=== PATIENT | male | born 1935 | race Caucasian/White ===

== ENCOUNTER → 2016-11-18 | Outpatient (CLI) | payer MEDICARE | LOC: LAB 11:35 | PROVIDERS: ATTEND Family Medicine | DX: R06.02 Shortness of breath (principal); I51.7 Cardiomegaly | CPT/HCPCS: 71020 ==

== ENCOUNTER → 2016-11-18 | Outpatient (REF) | payer MEDICARE ==
[2016-11-18 13:20] LABS: BASOPHILS % (AUTO) 1 % (0-2); EOSINOPHILS # (AUTO) 0.2 10^3uL; EOSINOPHILS % (AUTO) 4 % (0-4); LYMPHOCYTES # (AUTO) 0.7 X10^3; MEAN CORPUSCULAR HEMOGLOBIN 29.8 PG (26.0-34.0); MEAN CORPUSCULAR VOLUME 97 FL (80-100); MEAN PLATELET VOLUME 10.5 FL (6.0-9.5); MONOCYTES # (AUTO) 0.7 X10^3; MONOCYTES % (AUTO) 12 % (3-11); NEUTROPHILS % (AUTO) 71 % (51-67); PLATELET COUNT 194 10^3uL (150-450); WHITE BLOOD COUNT 5.64 10^3uL (4.0-11.0)
[2016-11-18 13:28] LABS: ALBUMIN 4.7 g/dL (3.4-5.0); ANION GAP 22.7 MEQ/L (3-15); CALCULATED IONIZED CALCIUM 3.7 mg/dL (3.8-4.6); TOTAL PROTEIN 8.3 g/dL (6.4-8.5)
[2016-11-18 13:44] LABS: MEAN CORPUSCULAR HGB CONC 30.8 g/dL (31.0-37.0)
== END ==
LOC: LAB 12:10
PROVIDERS: ATTEND Family Medicine
DX: R06.02 Shortness of breath (principal); I25.10 Atherosclerotic heart disease of native coronary artery without angina pectoris; E11.9 Type 2 diabetes mellitus without complications; I10 Essential (primary) hypertension
CPT/HCPCS: 80053; 85025; 86140

== ENCOUNTER 2016-12-15 17:42 | Emergency (ER) | payer OTHER, MEDICARE ==
[~2016-12-15] VITALS: Ht 185.4 cm; Wt 67.0 kg
[2016-12-15 17:50] VITALS: RESP 20
[2016-12-15 20:25] VITALS: BP 109/65
== END 2016-12-15 20:20 | disposition home or self-care (01) ==
LOC: EDUNIT# 17:42 → ED 17:44
DX: S20.211A Contusion of right front wall of thorax, initial encounter (principal); J90 Pleural effusion, not elsewhere classified; V49.40XA Driver injured in collision with unspecified motor vehicles in traffic accident, initial encounter; Y93.89 Activity, other specified; F17.200 Nicotine dependence, unspecified, uncomplicated
CPT/HCPCS: 71101; 72020; 99283; 99284

== ENCOUNTER → 2016-12-15 | Outpatient (CLI) | payer OTHER, MEDICARE ==
[~2016-12-15] MED LIST: ASPI325T4; ATOR40TA2; CHOL100092 PO; CITA20SO PO; CMBV14.7IN INH; CTLP20T PO; DOXY100T41 PO; ERGO400T6 PO; HCT25T; LSNP10T; MECL-105 PO; ONDAN4ODT PO; OXYC5TAB71 PO; OXYGEN; TEMA30CA PO; [UNRECOGNIZED DRUG - REMARK]; sleeping pill
== END ==
LOC: EMS 17:20
PROVIDERS: ATTEND Emergency Medicine
DX: R07.81 Pleurodynia (principal); V53.5XXA Driver of pick-up truck or van injured in collision with car, pick-up truck or van in traffic accident, initial encounter; Y92.414 Local residential or business street as the place of occurrence of the external cause

== ENCOUNTER → 2016-12-16 | Outpatient (CLI) | payer OTHER, MEDICARE | LOC: RAD 10:38 | PROVIDERS: ATTEND Family Medicine | DX: J94.2 Hemothorax (principal); J43.9 Emphysema, unspecified | CPT/HCPCS: 71020 ==

== ENCOUNTER → 2016-12-28 | Outpatient (CLI) | payer MEDICARE ==
[~2016-12-28] MED LIST changes: +MIRT7.5T8 PO; +SEVE800T7 PO
== END ==
LOC: EMS 16:20
DX: J18.9 Pneumonia, unspecified organism (principal); N19 Unspecified kidney failure; Z99.2 Dependence on renal dialysis

== ENCOUNTER → 2016-12-28 | Outpatient (CLI) | payer MEDICARE | LOC: EMS 13:10 | PROVIDERS: ATTEND Family Medicine | DX: R53.1 Weakness (principal); Z99.2 Dependence on renal dialysis ==

== ENCOUNTER → 2016-12-28 | Emergency (ER) | payer MEDICARE ==
[~2016-12-28] VITALS: Ht 185.4 cm; Wt 140.0 kg
[~2016-12-28] MED LIST changes: +NS IV 500 ML 500 ML IV SCH; +cefTRIAXone SODIUM 1,000 MG in SODIUM CHLORIDE 50 ML IV ONE
--- OUTSIDE RECORDS SUMMARY | 2016-12-28 13:24 | XMS REPORT | Continuity of Care Document ---
Author Author [facility] Address Unknown Phone Unavailable Care Team Providers Care Contact Center Assistant Name Role Phone RANDOLPH LUCERO MD PCP [phone] Insurance Providers Payer Name Policy Number Subscriber Name Relationship Medicare A And B [id number] Lolita Tidwell 19 Self / Same As Patient [employer] [facility] Supp [id number] Lolita Tidwell 19 Self / Same As Patient Advance Directives Directive Response Recorded Date/Time Advanced Directives No 12/15/16 5:47pm Chief Complaint and Reason for Visit Chief Complaint Trauma Reason for Visit [id number] Problems Active Problems Medical Problem Onset Date Status Bronchitis 06/28/2012 Resolved Chest pain Unknown Acute ESRD (end stage renal disease) Unknown Acute Fall Unknown Acute Falls Unknown Acute Fracture of neck of left humerus 05/13/2016 Acute Hypoxia Unknown Acute Rib contusion Unknown Acute Weakness generalized Unknown Acute Medications Current Home Medications Medication Dose Units Route Directions Days/Qty Instructions Start Date Temazepam 30 Mg 30 Mg ORAL Bedtime 05/13/16 Citalopram Hydrobromide (Celexa) 20 Mg 20 Mg ORAL Daily 08/17/16 Cholecalciferol (Vitamin D3) 1,000 Unit 1,000 Unit ORAL Bedtime Past Home Medications Medication Directions Ordered Status Aspirin 325 Mg Tablet, 06/28/12 Discontinued Atorvastatin Calcium 40 Mg Tablet, 06/28/12 Discontinued Lisinopril (Zestril) 10 Mg Tablet, 10/08/12 Discontinued Hydrochlorothiazide 25 Mg Tablet, 06/28/12 Discontinued Doxycycline Hyclate 100 Mg Tablet, 1 Tab Oral Twice A Day 06/28/12 Discontinued Albuterol/Ipratropium 14.7 Gm Aero, 14.7 2ML Respiratory (Inhalation) Every 6 Hours 06/28/12 Discontinued Meclizine Hcl (Antivert) 25 Mg Tablet, 1 - 2 Tab Oral Q 6H Prn 06/28/12 Discontinued [Pill For Depression] , Unknown Dose As Directed 04/14/16 Discontinued [Sleeping Pill ] , Unknown Dose Bedtime 04/14/16 Discontinued Ergocalciferol (Vitamin D2) 400 Unit Tablet, 400 Unit Oral As Directed Discontinued Citalopram Hydrobromide 20 Mg/10 Ml Solution, 20 Mg Oral Daily 05/13/16 Discontinued Oxycodone Hcl 5 Mg Tablet, 1-2 Tab Oral Every 6 Hours as needed for Pain Discontinued Ondansetron Hcl 4 Mg Tab.rapdis, 4 Mg Oral Every 4HRS as needed for Nausea Discontinued Social History Social History Problem Response Recorded Date/Time Onset Date Status Exposure to occupational hazards No 08/16/2016 8:32pm Query Response Start Date Stop Date Smoking Status Current every day smoker Hospital Discharge Instructions No hospital discharge instructions. Plan of Care Discharge Date 12/15/16 8:20pm Disposition 01 HOME OR SELF-CARE Condition at Discharge Stable Prescriptions See Medication Section Referrals RANDOLPH LUCERO MD - Additional Instructions/Education ED [facility] if any worse, Follow up with your doctor tomorrow morning as scheduled. Some of your test results may not be complete prior to your leaving the Emergency Department. The Emergency Department is not authorized to give test results over the phone. Please contact the doctor's office listed in this packet of information for your final results. Follow up with your primary care physician or return to the Emergency Department for worsening or worrisome symptoms. * Emergency Department phone number: [phone], x [phone] MEDICAL RECORD If you need copies of your X-rays, call [phone]. If you need copies of your medical record, including lab results, a signed authorization for release of records will be required. A telephone call for release of Health Information is not allowed. BILLING Billing can sometimes be confusing and frustrating. To help avoid confusion in the future, please take a moment to acquaint yourself with the billing parties for services. [employer] Emergency Room Services [facility] Physician Services [facility] X-rays [facility] Patients will receive bills for services from the appropriate provider. If you have any questions about your [facility] bill, our staff will be happy to assist you. Please call [phone], and ask for the billing department. THANK YOU for choosing [facility] as your emergency care provider! Care Plan and Goals ~~Discharge Care Plan~~ Problem: Contusion, pain to affected area, fall. Goal: Decreased contusion and pain to affected area. Instructions: Apply ice to area for 15-20 minutes every 3-4 hours. Elevate extremity above the level of the heart, if applicable. Splint area with pillow or blanket to any chest/abdomen injuries. Use incentive spirometry as directed. Take at least 10 deep breaths per hour. Take medication(s) as directed. Follow up with regular physician or specialist as directed. Exercise as tolerated or directed by physician. Functional Status No functional status results. Allergies, Adverse Reactions, Alerts No known allergies. Immunizations No immunization records. Vital Signs Acute Vital Signs Vital Response Date/Time Temperature (Fahrenheit) 97.9 12/15/2016 8:25pm Pulse 72 bpm 12/15/2016 8:25pm Respirations 20 12/15/2016 8:25pm Height 6 ft 1 in Weight 147 lb Body Mass Index 19.0 kg/m^2 Results Pending Laboratory Results Test Name Collection Date/Time Procedures Procedure Status Date Provider(s) CHEST X-RAY 2VW FRONTAL&LATL Completed 11/18/16 COMPREHEN METABOLIC PANEL Completed 02/28/17 COMPLETE CBC W/AUTO DIFF WBC Completed 11/18/16 C-REACTIVE PROTEIN Completed 11/18/16 Encounters Encounter Location Arrival/Admit Date Discharge/Depart Date Attending Provider Departed Emergency Room [facility] 12/15/16 5:44pm 12/15/16 8:20pm OSIRIS PRETTY MD Registered [facility] 12/15/16 5:20pm DASHAWN VIDAL MD Registered [facility] 11/18/16 12:10pm RANDOLPH LUCERO MD Registered Clinic [facility] 11/18/16 11:35am RANDOLPH LUCERO MD Recent Diagnosis
[2016-12-28 14:51] LABS: MEAN CORPUSCULAR HEMOGLOBIN 27.6 PG (26.0-34.0); MEAN CORPUSCULAR VOLUME 90 FL (80-100); MEAN PLATELET VOLUME 9.5 FL (6.0-9.5); PLATELET COUNT 312 10^3uL (150-450); WHITE BLOOD COUNT 18.21 10^3uL (4.0-11.0)
[2016-12-28 15:00] LABS: MEAN CORPUSCULAR HGB CONC 30.7 g/dL (31.0-37.0)
[2016-12-28 15:03] LABS: ALBUMIN 3.5 g/dL (3.4-5.0); ALKALINE PHOSPHATASE 211 U/L (38-126); ANION GAP 23.6 MEQ/L (3-15); CALCULATED IONIZED CALCIUM 4.4 mg/dL (3.8-4.6)
[2016-12-28 15:08] LABS: BUN/CREATININE RATIO 12 (10-20)
[2016-12-28 15:15] LABS: CREATINE KINASE < 20 U/L (55-170)
[2016-12-28 15:27] LABS: BAND NEUTROPHILS % 28 % (0-6); EOSINOPHILS % 0 % (0-4); LYMPHOCYTES # 0.4 #; MONOCYTES # 1.3 #; MONOCYTES % 7 % (3-11); RBC MORPH SEE REFERENCE (NORMAL); SEGMENTED NEUTROPHILS % 63 % (51-67); TOTAL CELLS COUNTED 100
[2016-12-28 15:28] LABS: ANISOCYTOSIS SLIGHT; HYPOCHROMASIA SLIGHT
--- NOTE | 2016-12-28 16:00 | NUR ---
Assisted to toilet, had bm.
[2016-12-28 16:28] VITALS: BP 109/57
--- NOTE | 2016-12-28 16:46 | Diagnostic Imaging Report ---
EXAM: Portable chest. COMPARISON with a prior study from December 16, 2016. INDICATION: Weakness and cough. FINDINGS: There is dense new consolidation demonstrated within the lower lobes, right greater than left. Associated effusion cannot be excluded. Findings are superimposed on background interstitial changes. There is chronic enlargement of the cardiac silhouette. There is no pneumothorax. A chronic post traumatic deformity is demonstrated of the left shoulder. IMPRESSION: 1. New dense alveolar opacities, right greater than left. Findings suggest bibasilar pneumonia. Associated effusions cannot be excluded. 2. There is enlargement of the cardiac silhouette. 3. The central pulmonary vascularity appears appropriate. 4. There is a remote chronic posttraumatic deformity of the left proximal humerus. Dictated by: Dictated on workstation # [id number]
== END | disposition short-term general hospital (02) ==
LOC: ED 13:22
DX: J18.1 Lobar pneumonia, unspecified organism (principal); F17.210 Nicotine dependence, cigarettes, uncomplicated; I51.7 Cardiomegaly; I45.81 Long QT syndrome; E11.22 Type 2 diabetes mellitus with diabetic chronic kidney disease; I13.11 Hypertensive heart and chronic kidney disease without heart failure, with stage 5 chronic kidney disease, or end stage renal disease; N18.6 End stage renal disease; Z99.2 Dependence on renal dialysis; Z99.81 Dependence on supplemental oxygen
CPT/HCPCS: 36415; 71010; 80053; 82550; 82553; 82803; 83605; 83880; 84484; 85025; 87040; 87486; 87581; 87633; 87798; 93005; 96361; 96365; 99284; J0696; J7040; 87150; 87205; 93010; 99285